=== PATIENT | female | born 1995 | race Caucasian/White ===

== ENCOUNTER 2019-05-20 21:18 | Emergency (ER) | payer OTHER ==
[2019-05-20 21:30] VITALS: BP 114/67; PULSE 94; TEMP 98.1; BMI 28.3
--- NOTE | 2019-05-20 21:30 | PDOC ---
Rapid Medical Evaluation Time Seen by Provider: 05/20/19 21:28 Medical Evaluation: 05/20/19 21:28 HPI:Abdominal pain, seen at urgent care and told to come to the ER PE:NAD no gross deficits ORDERS:Labs and U preg Discharge Disposition - Diagnosis Abdominal pain - Referrals - Patient Instructions - Post Discharge Activity
--- NOTE | 2019-05-20 22:52 | PDOC ---
History of Present Illness - General Chief Complaint: Pain Stated Complaint: ABDOMINAL PAIN Time Seen by Provider: 05/20/19 21:28 History Source: Patient Exam Limitations: No Limitations - History of Present Illness Initial Comments: 05/20/19 22:49 Patient is a 23-year-old female no with no previous medical history who presents to the ER complaining of atraumatic right upper quadrant and epigastric discomfort for the past several days, sharp, nonradiating, worse postprandially, without associated nausea/vomiting/diarrhea/melena/bright the blood per rectum. Pain is 6 of 10, without alleviating factors, waxing and waning in severity. Patient seen at an outside urgent care Center and given 800 mg of ibuprofen without any further interventions. Patient endorses family history of cholelithiasis. REVIEW OF SYSTEMS CONSTITUTIONAL: No fever, no chills, no fatigue EYES: No visual changes ENT: No ear pain, no sore throat CARDIOVASCULAR: No chest pain, no palpitations RESPIRATORY: No cough, no SOB GI: + abdominal pain, no nausea, no vomiting, no constipation, no diarrhea GENITOURINARY: No dysuria, no frequency, no hematuria MUSKULOSKELETAL: No backpain, no joint pain, no myalgias SKIN: No rash NEURO: No headache EXAMINATION CONSTITUTIONAL: Well-appearing; well-nourished; in no apparent distress HEAD: Normocephalic; atraumatic EYES: PERRL; EOM intact ENMT: External appears normal; normal oropharynx NECK: Supple; non-tender; no cervical lymphadenopathy CARD: Normal S1, S2; no murmurs, rubs, or gallops RESP: Normal chest excursion with respiration; breath sounds clear and equal bilaterally; no wheezes, rhonchi, or rales ABD: Soft, non-distended; + ruq tender; no guarding, no rebound; no palpable organomegaly, no palpable hernias EXT: Normal ROM in all four extremities; non-tender to palpation; distal pulses intact SKIN: Warm, dry, no rash NEURO: No focal neurological deficiencies. Past History - Past Medical History Allergies/Adverse Reactions: Allergies Allergy/AdvReac Type Severity Reaction Status Date / Time No Known Allergies Allergy Verified 05/20/19 21:31 COPD: No - Psycho Social/Smoking Cessation Hx Smoking History: Never smoked *Physical Exam - Vital Signs Last Vital Signs Temp Pulse Resp BP Pulse Ox 98.1 F 94 H 18 114/67 98 05/20/19 21:28 05/20/19 21:28 05/20/19 21:28 05/20/19 21:28 05/20/19 21:28 ED Treatment Course - RADIOLOGY Radiology Studies Ordered: Category Date Time Status ABDOMEN US -LIMITED [US] Stat Ultrasound 05/20/19 22:43 Ordered Medical Decision Making - Medical Decision Making 05/20/19 22:51 Patient is a well-appearing 23-year-old female who presents with signs and symptoms of biliary colic. We'll obtain CBC/CMP/lipase. We'll obtain right upper quadrant ultrasound to rule out cholecystitis. Will reassess. Likely discharge. 05/21/19 01:11 pt eloped after evaluation but prior to US. Discharge - Discharge Information Problems reviewed: Yes Clinical Impression/Diagnosis: Abdominal pain Qualifiers: Abdominal location: right upper quadrant Qualified Code(s): R10.11 - Right upper quadrant pain Condition: Fair Disposition: ELOPED - Follow up/Referral - Patient Discharge Instructions - Post Discharge Activity
--- NOTE | 2019-05-21 14:09 | EKG ---
Test Reason : Blood Pressure : / mmHG Vent. Rate : 100 BPM Atrial Rate : 100 BPM P-R Int : 152 ms QRS Dur : 104 ms QT Int : 356 ms P-R-T Axes : 057 042 059 degrees QTc Int : 459 ms NORMAL SINUS RHYTHM LOW VOLTAGE QRS INCOMPLETE RIGHT BUNDLE BRANCH BLOCK BORDERLINE ECG NO PREVIOUS ECGS AVAILABLE Confirmed by ASHLEY PERES MD ([id number]) on 05/21/2019 2:09:15 PM Referred By: Confirmed By:ASHLEY PERES MD
== END 2019-05-21 01:00 | disposition left against medical advice (07) ==
LOC: JER 21:18
DX: R10.11 Right upper quadrant pain (principal)
CPT/HCPCS: 93005; 93010; 99282-25